=== PATIENT | female | born 1940 | race Caucasian/White ===

== ENCOUNTER 2016-07-02 02:46 | Inpatient (IN) | payer MEDICARE ==
[~2016-07-02 02:46] MED LIST: AMOXICILLIN500 MG PO; ASPIRIN EC81 MG PO; CIPRO500 MG PO; CIPROFLOXACN500 MG PO; GLIP/METFORM1 TA1 PO; GLYB/METFOR1 PO; LISINOP/HCTZ1 TA1 PO; MEDDOSEPAK PO; MUCINEX600 MG PO; PRAVASTATIN80 MG PO; PREDNISONE10 MG PO; PYRIDIUM200 MG PO
[2016-07-02] MEDS ORDERED: LANTUS SOLOSTAR SC (03:17)
[2016-07-02] MEDS ORDERED: CRESTOR10 MG PO (03:18)
[2016-07-02] MEDS ORDERED: VICTOZA18 MG/3 ML SC (03:18)
[2016-07-02] MEDS ORDERED: HUMALOG100 UNIT/M SC (03:22)
[2016-07-02] MEDS ORDERED: Levaquin PO (03:26)
[2016-07-02] MEDS ORDERED: VENTOLIN HFA IN (03:27)
[2016-07-02] MEDS ORDERED: MEDDOSEPAK PO (03:27)
[2016-07-02 03:49] LABS: HEMATOCRIT 44.5 % (37.0-47.0); HEMOGLOBIN 15.2 g/dl (12.0-16.0); IMMATURE GRANULOCYTES 0.8 % (0.0-1.0); MEAN CELL VOLUME 81.8 fL CALC (80.0-100.0); MEAN CORPUSCULAR HGB 27.9 pG CALC (26.0-32.0); MEAN CORPUSCULAR HGB CONC 34.2 g/L CALC (32.0-36.0); NEUT# 12.48 thou/uL (2.00-7.15); RED BLOOD COUNT 5.44 mill/uL (4.20-5.60); RED CELL DISTRI WIDTH 12.8 % (11.5-15.5)
[2016-07-02 04:11] LABS: ALBUMIN 4.5 g/dL (3.2-5.0); ALKALINE PHOSPHATASE 109 u/l (38-126); ANION GAP 21 (6-22 (CALC)); BILIRUBIN, TOTAL 0.5 mg/dL (0.0-1.4); BUN 19 mg/dL (8-23); BUN/CREATININE RATIO 25 (12-20 (CALC)); CALCIUM 9.8 mg/dL (8.4-10.2); CARBON DIOXIDE 26 mmol/l (22-30); CHLORIDE 98 mmol/l (95-108); CREATININE 0.8 mg/dL (0.5-1.0); GFR > 60 ML/MIN (>=60 (CALC)); GFR FOR AFR.AMER. > 60 ML/MIN (>=60 (CALC)); GLUCOSE 222 mg/dL (82-115); POTASSIUM 4.5 mmol/l (3.5-5.1); SGOT/AST 21 u/l (9-36); SGPT/ALT 31 u/l (11-66); SODIUM 141 mmol/l (137-146); TOTAL PROTEIN 8.4 g/dL (6.3-8.2)
[2016-07-02 04:22] LABS: MYOGLOBIN 68 ng/mL (0 - 62)
[2016-07-02 04:43] LABS: URINE BILIRUBIN - DIPSTICK NEGATIVE (NEGATIVE); URINE BLOOD DIPSTICK NEGATIVE (NEGATIVE); URINE CLARITY CLEAR; URINE COLOR YELLOW; URINE GLUCOSE - DIPSTICK 100 mg/dL (NEGATIVE); URINE KETONE NEGATIVE (NEGATIVE); URINE LEUK ESTERASE NEGATIVE (NEGATIVE); URINE NITRITE - DIPSTICK NEGATIVE (Negative); URINE PH 5.5 (4.5-8.0); URINE PROTEIN - DIPSTICK NEGATIVE (NEG-TRACE); URINE SPECIFIC GRAVITY <=1.005; URINE UROBILINOGEN - DIPSTICK 0.2 E.U./dL (0.2)
[2016-07-02 08:00] VITALS: BP 133/70
[2016-07-02 10:00] VITALS: BP 133/61
[2016-07-02 12:00] VITALS: BP 166/77
[2016-07-02 14:00] VITALS: BP 112/57
[2016-07-02 14:16] VITALS: BP 112/57
== END 2016-07-02 15:55 | disposition short-term general hospital (02) | DRG 282 ==
LOC: ED 02:46 → ED-I 05:22 → ED 06:02 → ICU 06:03
PROVIDERS: Emergency Medicine; ADMIT Internal Medicine; ATTEND Internal Medicine
DX: I21.4 Non-ST elevation (NSTEMI) myocardial infarction (principal); E11.9 Type 2 diabetes mellitus without complications; I10 Essential (primary) hypertension; E78.5 Hyperlipidemia, unspecified; Z87.891 Personal history of nicotine dependence
CPT/HCPCS: J1650